=== PATIENT | female | born 1995 ===

== ENCOUNTER 2017-02-19 17:38 | Emergency (ER) | payer SELFPAY ==
[2017-02-19 17:49] VITALS: TEMP 99.2
--- NOTE | 2017-02-19 18:52 | RAD ---
HISTORY: chest pain, 2 months COMPARISON: Comparison is made to 03/28/2013 TECHNIQUE: Chest PA and lateral FINDINGS: LUNGS: No active pulmonary disease. PLEURA: No significant pleural effusion identified. No pneumothorax apparent. CARDIOVASCULAR: Normal. OSSEOUS STRUCTURES: No significant abnormalities. VISUALIZED UPPER ABDOMEN: Normal. OTHER FINDINGS: None. IMPRESSION: No active disease.
[2017-02-19 18:57] VITALS: BP 119/75; PULSE 95; RESP 19; O2SAT 98
--- NOTE | 2017-02-19 19:58 | ED PDOC ---
HPI: Chest Pain Time Seen by Provider: 02/19/17 18:01 Chief Complaint (Nursing): Chest Pain Past Medical History Vital Signs: Last Vital Signs Temp 99.2 F 02/19/17 18:56 Pulse 95 H 02/19/17 18:56 Resp 19 02/19/17 18:56 BP 119/75 02/19/17 18:56 Pulse Ox 98 02/19/17 18:56 - Family History Family History: States: Unknown Family Hx - Home Medications Home Medications: Ambulatory Orders Medication Instructions Recorded Amoxicillin 875 mg PO BID #14 tab 01/16/16 Ibuprofen [Motrin Tab] 800 mg PO Q8 PRN #20 tab 01/16/16 - Allergies Allergies/Adverse Reactions: Allergies Allergy/AdvReac Type Severity Reaction Status Date / Time No Known Allergies Allergy Verified 01/16/16 12:29 - ECG O2 Sat by Pulse Oximetry: 98 Disposition - Clinical Impression Clinical Impression: Chest pain - Patient ED Disposition Is Patient to be Admitted: No Counseled Patient/Family Regarding: Diagnosis, Need For Followup - Disposition Disposition: Routine/Home Disposition Time: 19:41 Condition: GOOD Instructions: Chest Pain (ED)
--- NOTE | 2017-02-20 08:07 | CARD ---
APPROVED REPORT EKG Measurement Heart [id number] <Conclusion> Normal sinus rhythm with sinus arrhythmia Normal ECG
== END 2017-02-19 19:50 | disposition home or self-care (01) ==
LOC: H.ER 17:38
DX: R07.89 Other chest pain (principal)

== ENCOUNTER 2017-02-28 23:53 | Emergency (ER) | payer SELFPAY ==
[2017-03-01] VITALS: BP 133/86; PULSE 113; RESP 16; TEMP 99.1; O2SAT 100
[2017-03-01] MEDS ORDERED: Sodium Chloride 0.9% 1,000 ML IV STA (00:36)
--- NOTE | 2017-03-01 01:07 | ED PDOC ---
HPI: Abdomen Time Seen by Provider: 03/01/17 00:04 Chief Complaint (Nursing): Abdominal Pain Chief Complaint (Provider): abdominal pain, nausea, watery diarrhea History Per: Patient History/Exam Limitations: no limitations Onset/Duration Of Symptoms: Days (3) Outside of [place] travel?: No Current Symptoms Are (Timing): Still Present Severity: Moderate Pain Scale Rating Of: 6 Location Of Pain/Discomfort: Diffuse Quality Of Discomfort: Dull, Cramping Past Medical History Reviewed: Historical Data, Nursing Documentation, Vital Signs Vital Signs: Last Vital Signs Temp 99.1 F 02/28/17 23:58 Pulse 113 H 02/28/17 23:58 Resp 16 02/28/17 23:58 BP 133/86 02/28/17 23:58 Pulse Ox 100 03/01/17 03:29 - Medical History PMH: No Chronic Diseases - Surgical History Surgical History: No Surg Hx - Family History Family History: States: Unknown Family Hx - Living Arrangements Living Arrangements: With Family - Social History Current smoker - smoking cessation education provided: No - Home Medications Home Medications: Ambulatory Orders Medication Instructions Recorded Amoxicillin 875 mg PO BID #14 tab 01/16/16 Ibuprofen [Motrin Tab] 800 mg PO Q8 PRN #20 tab 01/16/16 Ondansetron [Zofran Odt] 4 mg PO Q4H PRN #10 odt 03/01/17 - Allergies Allergies/Adverse Reactions: Allergies Allergy/AdvReac Type Severity Reaction Status Date / Time No Known Allergies Allergy Verified 02/28/17 23:58 Review of Systems ROS Statement: Except As Marked, All Systems Reviewed And Found Negative Constitutional: Negative for: Fever, Chills Respiratory: Negative for: Cough, Shortness of Breath Gastrointestinal: Positive for: Nausea, Abdominal Pain, Diarrhea Genitourinary Female: Negative for: Dysuria Physical Exam - Reviewed Nursing Documentation Reviewed: Yes Vital Signs Reviewed: Yes - Physical Exam Appears: Positive for: Well, Non-toxic, No Acute Distress Head Exam: Positive for: ATRAUMATIC, NORMAL INSPECTION, NORMOCEPHALIC Skin: Positive for: Normal Color, Warm, DRY Eye Exam: Positive for: Normal appearance ENT: Positive for: Normal ENT Inspection Neck: Positive for: Normal, Painless ROM Cardiovascular/Chest: Positive for: Regular Rate, Rhythm Respiratory: Positive for: Normal Breath Sounds. Negative for: Accessory Muscle Use Gastrointestinal/Abdominal: Positive for: Bowel Sounds, Soft, Tenderness (RLQ). Negative for: Normal Exam Back: Positive for: Normal Inspection Extremity: Positive for: Normal ROM Neurologic/Psych: Positive for: Alert, Oriented - Laboratory Results Result Diagrams: 03/01/17 01:10 03/01/17 01:10 - ECG O2 Sat by Pulse Oximetry: 100 Medical Decision Making Medical Decision Making: CT normal. Labs normal. Disposition - Clinical Impression Clinical Impression: Viral gastroenteritis - Patient ED Disposition Is Patient to be Admitted: No Counseled Patient/Family Regarding: Diagnosis, Need For Followup, Rx Given - Disposition Referrals: Daniella Knight MD [Primary Care Provider] - Disposition: Routine/Home Disposition Time: 03:34 Condition: GOOD Prescriptions: Ondansetron [Zofran Odt] 4 mg PO Q4H PRN #10 odt PRN Reason: Nausea Forms: [facility] (Telugu)
[2017-03-01 01:59] LABS: BASO % 0.3 % (0.0-2.0); EOS # 0.1 K/uL (0.0-0.7); EOS % 1.5 % (0.0-4.0); HEMATOCRIT 39.5 % (34.0-47.0); LYMPH # 2.1 K/uL (1.0-4.3); LYMPH % 30.6 % (20.0-40.0); MEAN CELL VOLUME 89.6 fl (81.0-99.0); MEAN CORPUSCULAR HEMOGLOBIN 29.4 pg (27.0-31.0); MEAN CORPUSCULAR HGB CONC 32.8 g/dL (33.0-37.0); MEAN PLATELET VOLUME 8.6 fl (7.2-11.7); MONO # 0.8 K/uL (0.0-0.8); MONO % 11.6 % (0.0-10.0); NEUT # 3.9 K/uL (1.8-7.0); RED CELL DISTRIBUTION WIDTH 12.7 % (11.5-14.5); WHITE BLOOD COUNT 6.9 K/uL (4.8-10.8)
[2017-03-01 02:06] LABS: ALB/GLOB RATIO 1.3 (1.0-2.1); ALKALINE PHOSPHATASE 55 U/L (38-126); ALT/SGPT 59 U/L (9-52); AST/SGOT 29 U/L (14-36); BILIRUBIN,TOTAL 0.5 mg/dl (0.2-1.3); BLOOD UREA NITROGEN 12 mg/dl (7-17); CALCIUM 9.2 mg/dL (8.4-10.2); CARBON DIOXIDE 25 mmol/L (22-30); CHLORIDE 103 mmol/L (98-107); GFR AFRICAN-AMERICAN > 60; GLUCOSE,RANDOM 80 mg/dL (65-105); POTASSIUM 3.6 MMOL/L (3.6-5.0); SODIUM 142 mmol/l (132-148); TOTAL PROTEIN 8.1 G/DL (6.3-8.2)
[2017-03-01] MEDS ORDERED: Iohexol 300 100 ML IJ ONE (02:13)
--- NOTE | 2017-03-01 08:10 | CT ---
PROCEDURE: CT Abdomen and Pelvis with contrast HISTORY: nausea, diarrhea, RLQ pain COMPARISON: Unenhanced abdomen and pelvis CT 11/05/2007. TECHNIQUE: Contrast dose: Omnipaque 300, 100 cc. Radiation dose: Total exam DLP = 774.12 mGy-cm. This CT exam was performed using one or more of the following dose reduction techniques: Automated exposure control, adjustment of the mA and/or kV according to patient size, and/or use of iterative reconstruction technique. FINDINGS: LOWER THORAX: Unremarkable. LIVER: Hepatic steatosis appreciated without focal mass underlying grossly. GALLBLADDER AND BILE DUCTS: Unremarkable. PANCREAS: Unremarkable. No gross lesion or ductal dilatation. SPLEEN: Unremarkable. ADRENALS: Unremarkable. No mass. KIDNEYS AND URETERS: Unremarkable. No hydronephrosis. No solid mass. VASCULATURE: Unremarkable. No aortic aneurysm. BOWEL: Stomach is distended with retained food. There is limited fecal loading throughout the colon. The bowel does not appear obstructed APPENDIX: Normal appendix. PERITONEUM: Trace fluid is seen in the inferior pelvis of uncertain origin and clinical significance. No mesenteric reaction is seen throughout. . LYMPH NODES: Unremarkable. No enlarged lymph nodes. BLADDER: Unremarkable. REPRODUCTIVE: Unremarkable. BONES: No acute fracture. OTHER FINDINGS: None. IMPRESSION: 1. Hepatic steatosis. 2. Trace fluid is seen in the inferior pelvis 3. Nonacute abdomen and pelvis CT examination as discussed above. If symptoms persist or worsen follow-up CT with oral and intravenous contrast is advised to further evaluate the abdomen pelvic organs. Concordant preliminary report from [facility], 03/01/2017.
== END 2017-03-01 03:54 | disposition home or self-care (01) ==
LOC: H.ER 23:53
DX: A08.4 Viral intestinal infection, unspecified (principal); K76.0 Fatty (change of) liver, not elsewhere classified
CPT/HCPCS: 74177; 80053; 81025; 85025; 96360; 99283; J2405; J7040; Q9967

== ENCOUNTER 2017-09-17 21:37 | Emergency (ER) | payer MEDICAID ==
[2017-09-17 21:47] VITALS: RESP 18; O2SAT 100
[2017-09-17 22:02] VITALS: BP 116/75; PULSE 84; TEMP 98.4
[2017-09-17] MEDS ORDERED: Sodium Chloride 0.9% 1,000 ML IV STA (23:09)
--- NOTE | 2017-09-17 23:19 | ED PDOC ---
HPI: Abdomen Time Seen by Provider: 09/17/17 22:44 Chief Complaint (Nursing): Abdominal Pain Chief Complaint (Provider): Abdominal Pain History Per: Patient History/Exam Limitations: no limitations Onset/Duration Of Symptoms: Days (x3), Intermittent Episodes Outside of [place] travel?: No Current Symptoms Are (Timing): Still Present Associated Symptoms: Nausea, Vomiting, Diarrhea. denies: Fever Additional Complaint(s): 21 year old female presents to ED with complaints of intermittent abdominal pain x3 days and has no past medical history. (+) nausea, vomiting x1 episode (non-bilious, non-bloody), and multiple episodes of diarrhea. (-) fever , cough, or SOB. PCP: None Past Medical History Reviewed: Historical Data, Nursing Documentation, Vital Signs Vital Signs: Last Vital Signs Temp 98.4 F 09/17/17 21:43 Pulse 84 09/17/17 21:43 Resp 18 09/17/17 21:43 BP 116/75 09/17/17 21:43 Pulse Ox 100 09/17/17 23:28 - Medical History PMH: No Chronic Diseases - Surgical History Surgical History: No Surg Hx - Family History Family History: States: Unknown Family Hx - Living Arrangements Living Arrangements: With Family - Social History Current smoker - smoking cessation education provided: No Ex-Smoker (has not smoked in the last 12 months): No Alcohol: None Drugs: Denies - Home Medications Home Medications: Ambulatory Orders Medication Instructions Recorded Amoxicillin 875 mg PO BID #14 tab 01/16/16 Ibuprofen [Motrin Tab] 800 mg PO Q8 PRN #20 tab 01/16/16 Ondansetron [Zofran Odt] 4 mg PO Q4H PRN #10 odt 03/01/17 Dicyclomine [Bentyl] 20 mg PO Q12 PRN #20 tab 09/18/17 Ondansetron ODT [Zofran ODT] 4 mg PO Q6 PRN #6 odt 09/18/17 - Allergies Allergies/Adverse Reactions: Allergies Allergy/AdvReac Type Severity Reaction Status Date / Time No Known Allergies Allergy Verified 09/17/17 21:43 Review of Systems ROS Statement: Except As Marked, All Systems Reviewed And Found Negative Constitutional: Negative for: Fever Respiratory: Negative for: Cough, Shortness of Breath Gastrointestinal: Positive for: Nausea, Vomiting (x1 episode), Abdominal Pain, Diarrhea (multiple episodes) Physical Exam - Reviewed Nursing Documentation Reviewed: Yes Vital Signs Reviewed: Yes - Physical Exam Appears: Positive for: Non-toxic, No Acute Distress Skin: Positive for: Normal Color, Warm, Dry Cardiovascular/Chest: Positive for: Regular Rate, Rhythm. Negative for: Murmur Respiratory: Positive for: Normal Breath Sounds. Negative for: Respiratory Distress Gastrointestinal/Abdominal: Positive for: Soft, Tenderness (mild LUQ tenderness) . Negative for: Normal Exam Neurologic/Psych: Positive for: Alert, Oriented. Negative for: Motor/Sensory Deficits - Laboratory Results Result Diagrams: 09/17/17 23:30 09/17/17 23:30 - ECG O2 Sat by Pulse Oximetry: 100 (RA) Pulse Ox Interpretation: Normal Medical Decision Making Medical Decision Makin Initial impression: 21 year old female with abdominal pain and diarrhea Initial plan: * Labs * Lipase * UPreg * UDip * Bentyl 20mg PO * NS IV * UA * Re-eval 0110 Upon re-evaluation patient reports marked improvement in symptoms and confirms PO tolerance. Labs reviewed: no clinically significant abnormalities with exception of urine being indicative of possible UTI. Dx: acute gastroenteritis Condition: improved Scribe Attestation: Documented by Josi Hernandez acting as a scribe for Matthew Davenport MD. Scribe Attestation: All medical record entries made by the Scribe were at my direction and personally dictated by me. I have reviewed the chart and agree that the record accurately reflects my personal performance of the history, physical exam, medical decision making, and the department course for this patient. I have also personally directed, reviewed, and agree with the discharge instructions and disposition. Disposition - Clinical Impression Clinical Impression: Gastroenteritis - Disposition Disposition: Routine/Home Disposition Time: 01:10 Condition: IMPROVED Prescriptions: Dicyclomine [Bentyl] 20 mg PO Q12 PRN #20 tab PRN Reason: abdominal pain/diarrhea Ondansetron ODT [Zofran ODT] 4 mg PO Q6 PRN #6 odt PRN Reason: Nausea/Vomiting Instructions: Gastroenteritis (ED) Forms: [employer] (Georgian)
[2017-09-17 23:38] LABS: BASO % 0.5 % (0.0-2.0); EOS # 0.1 K/uL (0.0-0.7); EOS % 0.8 % (0.0-4.0); LYMPH # 2.8 K/uL (1.0-4.3); LYMPH % 31.1 % (20.0-40.0); MEAN CELL VOLUME 90.5 fl (81.0-99.0); MEAN CORPUSCULAR HEMOGLOBIN 30.4 pg (27.0-31.0); MEAN CORPUSCULAR HGB CONC 33.6 g/dL (33.0-37.0); MEAN PLATELET VOLUME 8.3 fl (7.2-11.7); MONO # 0.7 K/uL (0.0-0.8); MONO % 8.2 % (0.0-10.0); NEUT # 5.4 K/uL (1.8-7.0); NEUT % 59.4 % (50.0-75.0); RBC 4.27 Mil/uL (3.80-5.20); RED CELL DISTRIBUTION WIDTH 13.1 % (11.5-14.5)
[2017-09-17 23:43] LABS: SQUAMOUS EPITHIAL < 1 /hpf (0-5); URINE AMORPHOUS SEDIMENT RARE /ul (<OCC); URINE BACTERIA RARE (<OCC); URINE BILIRUBIN NEGATIVE (NEGATIVE); URINE BLOOD SMALL (NEGATIVE); URINE CLARITY SLIGHTY-CLOUDY (Clear); URINE COLOR STRAW (YELLOW); URINE GLUCOSE (UA) NEG (Normal); URINE PROTEIN NEGATIVE (NEGATIVE); URINE UROBILINOGEN 0.2-1.0 mg/dL (0.2-1.0)
[2017-09-17 23:44] LABS: URINE LEUKOCYTE ESTERASE SMALL Leu/uL (Negative)
[2017-09-17 23:53] LABS: ALB/GLOB RATIO 1.3 (1.0-2.1); ALBUMIN 4.5 g/dL (3.5-5.0); ALT/SGPT 38 U/L (9-52); AST/SGOT 23 U/L (14-36); BLOOD UREA NITROGEN 9 mg/dl (7-17); CALCIUM 9.6 mg/dL (8.4-10.2); GFR AFRICAN-AMERICAN > 60; GFR NON-AFRICAN AMERICAN > 60; LIPASE 73 U/L (23-300)
== END 2017-09-18 01:20 | disposition home or self-care (01) ==
LOC: H.ER 21:37
DX: K52.9 Noninfective gastroenteritis and colitis, unspecified (principal)
CPT/HCPCS: 80053; 81003; 81025; 83690; 85025; 87086; 96360; 99284; J7030

== ENCOUNTER 2017-11-12 23:34 | Emergency (ER) | payer MEDICAID ==
[2017-11-12 23:47] VITALS: BP 117/80; PULSE 93; RESP 16; TEMP 98.6; O2SAT 99
--- NOTE | 2017-11-13 00:50 | ED PDOC ---
Lower Extremity Pain/Injury Time Seen by Provider: 11/13/17 00:08 Chief Complaint (Nursing): Lower Extremity Problem/Injury Chief Complaint (Provider): right ankle pain History Per: Patient History/Exam Limitations: no limitations Onset/Duration Of Symptoms: Days (3) Current Symptoms Are (Timing): Still Present Additional Complaint(s): 21 y/o female presents for evaluation of right ankle pain x 3 day. Patient states she woke up with the pain one day, which is worsened with weight-bearing , flexion and extension of right ankle. Denies known injury, fever, swelling to ankle, numbness/weakness right lower extremity, limitation of movement. Past Medical History Reviewed: Historical Data, Nursing Documentation, Vital Signs Vital Signs: Last Vital Signs Temp 98.6 F 11/12/17 23:44 Pulse 93 H 11/12/17 23:44 Resp 16 11/12/17 23:44 BP 117/80 11/12/17 23:44 Pulse Ox 99 11/12/17 23:44 - Medical History PMH: No Chronic Diseases - Surgical History Surgical History: No Surg Hx - Family History Family History: States: Unknown Family Hx - Home Medications Home Medications: Ambulatory Orders Medication Instructions Recorded Amoxicillin 875 mg PO BID #14 tab 01/16/16 Ibuprofen [Motrin Tab] 800 mg PO Q8 PRN #20 tab 01/16/16 Ondansetron [Zofran Odt] 4 mg PO Q4H PRN #10 odt 03/01/17 Dicyclomine [Bentyl] 20 mg PO Q12 PRN #20 tab 09/18/17 Ondansetron ODT [Zofran ODT] 4 mg PO Q6 PRN #6 odt 09/18/17 Ibuprofen [Motrin Tab] 1 tab PO Q6 PRN #20 tab 11/13/17 - Allergies Allergies/Adverse Reactions: Allergies Allergy/AdvReac Type Severity Reaction Status Date / Time No Known Allergies Allergy Verified 11/12/17 23:44 Review of Systems ROS Statement: Except As Marked, All Systems Reviewed And Found Negative Musculoskeletal: Positive for: Leg Pain (right ankle) Physical Exam - Reviewed Nursing Documentation Reviewed: Yes Vital Signs Reviewed: Yes - Physical Exam Appears: Positive for: Well, Non-toxic, No Acute Distress Pulses-Dorsalis Pedis (L): 2+ Pulses-Dorsalis Pedis (R): 2+ Pulses-Post. Tibialis (L): 2+ Pulses-Post. Tibialis (R): 2+ Extremity: Positive for: Normal ROM, Tenderness (anterior aspect right ankle; no erythema, deformity, ecchymosis noted. FROM. Distal NV/motor intact) Neurologic/Psych: Positive for: Alert, Oriented. Negative for: Motor/Sensory Deficits - ECG O2 Sat by Pulse Oximetry: 99 - Other Rad right ankle xray X-Ray: Viewed By Me X-Ray Interpretation: no acute findings - Progress ED Course And Treament: ibuprofen PO, right ankle xray Patient educated on findings, right ankle wrapped in ERIN. Crutches given with demonstration on light weight bearing Rx Ibuprofen provided Advised RICE. Follow up podiatry for persistent symptoms. Return precautions given Patient demonstrates full understanding of discharge instructions. Patient requires no further intervention in ED and is stable for discharge at this time. Disposition - Clinical Impression Clinical Impression: Ankle pain - Patient ED Disposition Is Patient to be Admitted: No Counseled Patient/Family Regarding: Studies Performed, Diagnosis, Need For Followup, Rx Given - Disposition Referrals: Charisse Gerber MD [Primary Care Provider] - Podiatry Clinic [Outside] Disposition: Routine/Home Disposition Time: 01:26 Condition: IMPROVED Prescriptions: Ibuprofen [Motrin Tab] 1 tab PO Q6 PRN #20 tab PRN Reason: Pain, Moderate (4-7) Instructions: Muscle and Bone Pain (DC) Forms: [facility] ED School/Work Excuse
--- NOTE | 2017-11-13 08:34 | RAD ---
Date of service: 11/13/2017 PROCEDURE: Right Ankle Radiographs. HISTORY: ankle pain COMPARISON: None FINDINGS: BONES: Normal. No fracture. JOINTS: Normal. No osteoarthritis. Ankle mortise maintained. Talar dome intact SOFT TISSUES: Normal. OTHER FINDINGS: None. IMPRESSION: Normal right ankle radiographs.
== END 2017-11-13 02:00 | disposition home or self-care (01) ==
LOC: H.ER 23:34
DX: M25.571 Pain in right ankle and joints of right foot (principal)

== ENCOUNTER 2018-01-01 23:08 | Emergency (ER) | payer MEDICAID ==
[2018-01-01 23:14] VITALS: RESP 16
--- NOTE | 2018-01-02 00:31 | ED PDOC ---
HPI: CCC, URI, Sore Throat Time Seen by Provider: 01/01/18 23:40 Chief Complaint (Nursing): ENT Problem Chief Complaint (Provider): right ear irritation History Per: Patient History/Exam Limitations: no limitations Onset/Duration Of Symptoms: Days (1 week) Current Symptoms Are (Timing): Still Present Additional Complaint(s): 22 y/o female presents for evaluation of right ear irritation x 1 week. Patient states she put a blanket over her head while sleeping and thinks something may have gone into her ear. Reports intermittent pain/itching since then. Denies fever, drainage from ear, hearing changes, nasal congestion, cough Past Medical History Reviewed: Historical Data, Nursing Documentation, Vital Signs Vital Signs: Last Vital Signs Temp 98.3 F 01/01/18 23:12 Pulse 92 H 01/01/18 23:12 Resp 16 01/01/18 23:12 BP 115/74 01/01/18 23:12 Pulse Ox 99 01/01/18 23:12 - Medical History PMH: No Chronic Diseases - Surgical History Surgical History: No Surg Hx - Family History Family History: States: Unknown Family Hx - Living Arrangements Living Arrangements: With Family - Home Medications Home Medications: Ambulatory Orders Medication Instructions Recorded Amoxicillin 875 mg PO BID #14 tab 01/16/16 Ibuprofen [Motrin Tab] 800 mg PO Q8 PRN #20 tab 01/16/16 Ondansetron [Zofran Odt] 4 mg PO Q4H PRN #10 odt 03/01/17 Dicyclomine [Bentyl] 20 mg PO Q12 PRN #20 tab 09/18/17 Ondansetron ODT [Zofran ODT] 4 mg PO Q6 PRN #6 odt 09/18/17 Ibuprofen [Motrin Tab] 1 tab PO Q6 PRN #20 tab 11/13/17 Ibuprofen [Motrin Tab] 1 tab PO Q6 PRN #15 tab 01/02/18 Neomycin/Polymyxin/Hydrocortis 4 drop OT TID #1 bottle 01/02/18 [Cortisporin Otic Susp] - Allergies Allergies/Adverse Reactions: Allergies Allergy/AdvReac Type Severity Reaction Status Date / Time No Known Allergies Allergy Verified 01/01/18 23:11 Review of Systems ROS Statement: Except As Marked, All Systems Reviewed And Found Negative ENT: Positive for: Ear Pain (right) Physical Exam - Reviewed Nursing Documentation Reviewed: Yes Vital Signs Reviewed: Yes - Physical Exam Appears: Positive for: Well, Non-toxic, No Acute Distress Head Exam: Positive for: ATRAUMATIC, NORMAL INSPECTION, NORMOCEPHALIC Skin: Positive for: Normal Color ENT: Positive for: TM Is/Are (TMs clear bilaterally. Right EAC edema, + tenderness with speculum insertion. Left EAC clear. No tenderness upon tragus/pinna maniupulation. No mastoid swelling/erythema/tenderness b/l) Cardiovascular/Chest: Positive for: Regular Rate, Rhythm Respiratory: Positive for: Normal Breath Sounds Gastrointestinal/Abdominal: Positive for: Normal Exam Back: Positive for: Normal Inspection Extremity: Positive for: Normal ROM Neurologic/Psych: Positive for: Alert, Oriented (x3) - ECG O2 Sat by Pulse Oximetry: 99 - Progress ED Course And Treament: Patient educated on findings, discharged with rx Cortisporin drops, ibuprofen Advised follow up PMD within 2-3 days Return precautions given Disposition - Clinical Impression Clinical Impression: Right otitis externa - Patient ED Disposition Is Patient to be Admitted: No Counseled Patient/Family Regarding: Studies Performed, Diagnosis, Need For Followup, Rx Given - Disposition Disposition: Routine/Home Disposition Time: 01:48 Condition: IMPROVED Prescriptions: Ibuprofen [Motrin Tab] 1 tab PO Q6 PRN #15 tab PRN Reason: Pain, Moderate (4-7) Neomycin/Polymyxin/Hydrocortis [Cortisporin Otic Susp] 4 drop OT TID #1 bottle Instructions: Outer Ear Infection
[2018-01-02 01:29] LABS: SQUAMOUS EPITHIAL 5 /hpf (0-5); URINE BILIRUBIN NEGATIVE (NEGATIVE); URINE BLOOD NEGATIVE (NEGATIVE); URINE CLARITY SLIGHTY-CLOUDY (Clear); URINE COLOR YELLOW (YELLOW); URINE GLUCOSE (UA) NEG (Normal); URINE LEUKOCYTE ESTERASE SMALL Leu/uL (Negative); URINE PROTEIN 30 mg/dL (NEGATIVE)
[2018-01-02 02:29] VITALS: BP 122/70; PULSE 67; TEMP 98.8; O2SAT 98
== END 2018-01-02 02:00 | disposition home or self-care (01) ==
LOC: H.ER 23:08
DX: H60.91 Unspecified otitis externa, right ear (principal)

== ENCOUNTER 2018-02-19 17:58 | Emergency (ER) | payer MEDICAID ==
[2018-02-19 19:22] VITALS: BP 129/80; PULSE 85; RESP 18; TEMP 98.9; O2SAT 100
--- NOTE | 2018-02-19 20:25 | ED PDOC ---
HPI: Female Pain Time Seen by Provider: 02/19/18 19:22 Chief Complaint (Nursing): Female Genitourinary Chief Complaint (Provider): Pain wiht urination x 1 week History Per: Patient History/Exam Limitations: no limitations Onset/Duration Of Symptoms: Days Current Symptoms Are (Timing): Still Present Quality Of Discomfort: "Pain" Associated Symptoms: Urinary Symptoms. denies: Fever, Chills, Nausea, Vomiting, Loss Of Appetite, Back Pain, Chest Pain, Constipation Alleviating Factors: None Additional Complaint(s): 22 yo female with no medical problems presents for evaluation of pain on urination for 1 week. Pt also reports lower abdominal pain, central during urination. Pt states pain is not burning or hot, just pain. No N/V/D. No back pain. No fever/chills. Past Medical History Reviewed: Historical Data, Nursing Documentation, Vital Signs Vital Signs: Last Vital Signs Temp 98.9 F 02/19/18 19:19 Pulse 85 02/19/18 19:19 Resp 18 02/19/18 19:19 BP 129/80 02/19/18 19:19 Pulse Ox 100 02/19/18 19:19 - Medical History PMH: No Chronic Diseases - Surgical History Surgical History: No Surg Hx - Family History Family History: States: Unknown Family Hx - Living Arrangements Living Arrangements: With Family - Social History Current smoker - smoking cessation education provided: No - Home Medications Home Medications: Ambulatory Orders Medication Instructions Recorded Amoxicillin 875 mg PO BID #14 tab 01/16/16 Ibuprofen [Motrin Tab] 800 mg PO Q8 PRN #20 tab 01/16/16 Ondansetron [Zofran Odt] 4 mg PO Q4H PRN #10 odt 03/01/17 Dicyclomine [Bentyl] 20 mg PO Q12 PRN #20 tab 09/18/17 Ondansetron ODT [Zofran ODT] 4 mg PO Q6 PRN #6 odt 09/18/17 Ibuprofen [Motrin Tab] 1 tab PO Q6 PRN #20 tab 11/13/17 Ibuprofen [Motrin Tab] 1 tab PO Q6 PRN #15 tab 01/02/18 Neomycin/Polymyxin/Hydrocortis 4 drop OT TID #1 bottle 01/02/18 [Cortisporin Otic Susp] Ciprofloxacin [Cipro] 500 mg PO BID #10 tab 02/19/18 - Allergies Allergies/Adverse Reactions: Allergies Allergy/AdvReac Type Severity Reaction Status Date / Time No Known Allergies Allergy Verified 01/01/18 23:11 Review of Systems ROS Statement: Except As Marked, All Systems Reviewed And Found Negative Constitutional: Negative for: Fever, Chills Gastrointestinal: Negative for: Nausea, Vomiting, Abdominal Pain Genitourinary Female: Positive for: Dysuria. Negative for: Frequency, Incont inence, Vaginal Discharge, Vaginal Bleeding, Pelvic Pain Musculoskeletal: Negative for: Back Pain Skin: Negative for: Rash Neurological: Negative for: Weakness, Numbness, Altered Mental Status, Headache, Dizziness Physical Exam - Reviewed Nursing Documentation Reviewed: Yes Vital Signs Reviewed: Yes - Physical Exam Appears: Positive for: Well, Non-toxic, No Acute Distress Head Exam: Positive for: ATRAUMATIC, NORMAL INSPECTION, NORMOCEPHALIC Skin: Positive for: Normal Color, Warm, DRY Eye Exam: Positive for: EOMI, Normal appearance, PERRL ENT: Positive for: Normal ENT Inspection Neck: Positive for: Normal, Painless ROM Cardiovascular/Chest: Positive for: Regular Rate, Rhythm. Negative for: Bradycardia, Tachycardia Respiratory: Positive for: Normal Breath Sounds. Negative for: Accessory Muscle Use, Respiratory Distress Gastrointestinal/Abdominal: Positive for: Normal Exam. Negative for: Tenderness Back: Positive for: Normal Inspection Extremity: Positive for: Normal ROM Neurologic/Psych: Positive for: Alert, Oriented - Laboratory Results Urine POC: Negative - ECG O2 Sat by Pulse Oximetry: 100 Pulse Ox Interpretation: Normal Disposition - Clinical Impression Clinical Impression: UTI (urinary tract infection) - Patient ED Disposition Is Patient to be Admitted: No Counseled Patient/Family Regarding: Diagnosis, Need For Followup, Rx Given - Disposition Disposition: Routine/Home Disposition Time: 20:25 Condition: GOOD Prescriptions: Ciprofloxacin [Cipro] 500 mg PO BID #10 tab Instructions: Urinary Tract Infection, Adult (DC)
== END 2018-02-19 20:33 | disposition home or self-care (01) ==
LOC: H.ER 17:58
DX: N39.0 Urinary tract infection, site not specified (principal)

== ENCOUNTER 2018-07-28 14:03 | Emergency (ER) | payer MEDICAID ==
[2018-07-28 14:34] VITALS: RESP 18
--- NOTE | 2018-07-28 14:54 | ED PDOC ---
HPI: Abdomen Time Seen by Provider: 07/28/18 14:51 Chief Complaint (Nursing): Abdominal Pain Chief Complaint (Provider): ABDOMINAL PAIN History Per: Patient (22 Y/O FEMALE WITH LLQ ABD PAIN INTERMITTENT X 4 WEEKS ASSOCIATED WITH VOMITING. DENIES ANY . NO VAGINAL DISCHARGE/FEVERS/CHILLS/DYSURIA/DIARRHEA.) Past Medical History Reviewed: Historical Data, Nursing Documentation, Vital Signs Vital Signs: Last Vital Signs Temp 98.5 F 07/28/18 14:32 Pulse 75 07/28/18 14:32 Resp 18 07/28/18 14:32 BP 117/75 07/28/18 14:32 Pulse Ox 100 07/28/18 14:32 Primary Care Provider: Charisse Gerber - Family History Family History: States: Unknown Family Hx - Home Medications Home Medications: Ambulatory Orders Medication Instructions Recorded Amoxicillin 875 mg PO BID #14 tab 01/16/16 Ibuprofen [Motrin Tab] 800 mg PO Q8 PRN #20 tab 01/16/16 Ondansetron [Zofran Odt] 4 mg PO Q4H PRN #10 odt 03/01/17 Dicyclomine [Bentyl] 20 mg PO Q12 PRN #20 tab 09/18/17 Ondansetron ODT [Zofran ODT] 4 mg PO Q6 PRN #6 odt 09/18/17 Ibuprofen [Motrin Tab] 1 tab PO Q6 PRN #20 tab 11/13/17 Ibuprofen [Motrin Tab] 1 tab PO Q6 PRN #15 tab 01/02/18 Neomycin/Polymyxin/Hydrocortis 4 drop OT TID #1 bottle 01/02/18 [Cortisporin Otic Susp] Ciprofloxacin [Cipro] 500 mg PO BID #10 tab 02/19/18 - Allergies Allergies/Adverse Reactions: Allergies Allergy/AdvReac Type Severity Reaction Status Date / Time No Known Allergies Allergy Verified 07/28/18 14:34 Review of Systems ROS Statement: Except As Marked, All Systems Reviewed And Found Negative Physical Exam - Reviewed Nursing Documentation Reviewed: Yes Vital Signs Reviewed: Yes - Physical Exam Appears: Positive for: Well, Non-toxic, No Acute Distress Head Exam: Positive for: ATRAUMATIC, NORMAL INSPECTION, NORMOCEPHALIC Skin: Positive for: Normal Color, Warm, DRY Eye Exam: Positive for: EOMI, Normal appearance, PERRL ENT: Positive for: Normal ENT Inspection Neck: Positive for: Normal, Painless ROM Cardiovascular/Chest: Positive for: Regular Rate, Rhythm Respiratory: Positive for: CNT, Normal Breath Sounds Gastrointestinal/Abdominal: Positive for: Normal Exam, Soft Pelvic Exam: Positive for: Active Bleeding. Negative for: Bimanual Exam Normal Back: Positive for: Normal Inspection Extremity: Positive for: Normal ROM Neurological/Psych: Positive for: Awake, Alert, Normal Tone - Laboratory Results Result Diagrams: 07/28/18 15:47 07/28/18 15:47 - ECG O2 Sat by Pulse Oximetry: 100 - Progress ED Course And Treament: TORADOL 15 MG IV X 1 DOSE PATIENT NOTES PERSISENT PAIN G/C CX SENT US REVIEWED. WBC ELEVATED 12.7 CT ABD/PELVIS ORDERED Medical Decision Making Medical Decision Making: Time: Initial Impression: Initial Plan: 1710 FINDINGS: UTERUS: Measures 3.2 x 3.7 x 7.2 cm. Normal in size and appearance. No fibroid or other mass lesion seen. ENDOMETRIUM: Measures 8.1 mm in diameter. No ultrasound findings to suggest gestational sac, fluid, debris, mass or polyp or other pathologic process within the endometrium. CERVIX: No cervical abnormality identified. RIGHT OVARY: Measures 3.5 x 1.6 x 2.8 cm. No solid mass. Normal flow. Complex cyst 0.9 x 1.1 x 1.8 cm LEFT OVARY: Measures 1 1 x 1.8 x 1.8 cm. No solid mass. Normal flow. Multiple subcentimeter follicles. FREE FLUID: No significant free fluid noted. OTHER FINDINGS: None. IMPRESSION: Unremarkable uterus and endometrial echo complex. Multiple bilateral cysts/follicles. Dominant complex cyst right adnexa. --- Scribe Attestation: Documented by Josué Briseno, acting as a scribe for JELANI Thakur. Provider Scribe Attestation: All medical record entries made by the Scribe were at my direction and personally dictated by me. I have reviewed the chart and agree that the record accurately reflects my personal performance of the history, physical exam, medical decision making, and the department course for this patient. I have also personally directed, reviewed, and agree with the discharge instructions and disposition. Disposition - Clinical Impression Clinical Impression: Abdominal pain in female - Patient ED Disposition Is Patient to be Admitted: Transfer of Care - Disposition Disposition: Transfer of Care Disposition Time: 20:00 Condition: FAIR Patient Signed Over To: Alejandra Gardiner Handoff Comments: PENDING CT ABD/PELVIS RESULTS
[2018-07-28 15:57] LABS: BASO # 0.1 K/uL (0.0-0.2); BASO % 0.4 % (0.0-2.0); EOS % 0.2 % (0.0-4.0); HEMOGLOBIN 13.2 g/dL (12.0-16.0); LYMPH # 1.5 K/uL (1.0-4.3); LYMPH % 12.1 % (20.0-40.0); MEAN CELL VOLUME 91.1 fl (81.0-99.0); MEAN CORPUSCULAR HGB CONC 32.9 g/dL (33.0-37.0); MEAN PLATELET VOLUME 9.2 fl (7.2-11.7); MONO # 0.7 K/uL (0.0-0.8); MONO % 5.5 % (0.0-10.0); NEUT # 10.4 K/uL (1.8-7.0); NEUT % 81.8 % (50.0-75.0); RBC 4.41 Mil/uL (3.80-5.20); WHITE BLOOD COUNT 12.7 K/uL (4.8-10.8)
[2018-07-28 16:07] LABS: SQUAMOUS EPITHIAL 2 /hpf (0-5); URINE BACTERIA RARE (<OCC); URINE BILIRUBIN NEGATIVE (NEGATIVE); URINE BLOOD LARGE (NEGATIVE); URINE CLARITY SLIGHTY-CLOUDY (Clear); URINE COLOR YELLOW (YELLOW); URINE GLUCOSE (UA) NEG (NEGATIVE); URINE LEUKOCYTE ESTERASE NEG Leu/uL (Negative); URINE PROTEIN NEGATIVE (NEGATIVE); URINE UROBILINOGEN 0.2-1.0 mg/dL (0.2-1.0)
[2018-07-28 16:08] LABS: ALB/GLOB RATIO 1.4 (1.0-2.1); ALBUMIN 4.4 g/dL (3.5-5.0); BLOOD UREA NITROGEN 9 mg/dl (7-17); CALCIUM 9.3 mg/dL (8.4-10.2); GFR NON-AFRICAN AMERICAN > 60; LIPASE 37 U/L (23-300)
[2018-07-28 16:21] LABS: ALT/SGPT 23 U/L (9-52); AST/SGOT 29 U/L (14-36)
--- NOTE | 2018-07-28 17:54 | US ---
Date of service: 07/28/2018 HISTORY: LLQ PAIN and vomiting. LMP 07/16/2018. Regular cycles. COMPARISON: None available. TECHNIQUE: Transvaginal only. Real -time technique with 2D, duplex and color Doppler FINDINGS: UTERUS: Measures 3.2 x 3.7 x 7.2 cm. Normal in size and appearance. No fibroid or other mass lesion seen. ENDOMETRIUM: Measures 8.1 mm in diameter. No ultrasound findings to suggest gestational sac, fluid, debris, mass or polyp or other pathologic process within the endometrium. CERVIX: No cervical abnormality identified. RIGHT OVARY: Measures 3.5 x 1.6 x 2.8 cm. No solid mass. Normal flow. Complex cyst 0.9 x 1.1 x 1.8 cm LEFT OVARY: Measures 1 1 x 1.8 x 1.8 cm. No solid mass. Normal flow. Multiple subcentimeter follicles. FREE FLUID: No significant free fluid noted. OTHER FINDINGS: None. IMPRESSION: Unremarkable uterus and endometrial echo complex. Multiple bilateral cysts/follicles. Dominant complex cyst right adnexa.
[2018-07-28] MEDS ORDERED: Iohexol 240 (50 ml) PO ONE (18:29)
[2018-07-28] MEDS ORDERED: Iohexol 240 (50 ml) ONE (19:17)
[2018-07-28] MEDS ORDERED: Sodium Chloride 0.9% 50 ML IV ONE (21:03)
[2018-07-28] MEDS ORDERED: Iohexol 300 100 ML IJ ONE (21:03)
--- NOTE | 2018-07-28 21:38 | ED PDOC ---
- Laboratory Results Result Diagrams: 07/28/18 15:47 07/28/18 15:47 Lab Results: Total Bilirubin 1.0 mg/dl (0.2-1.3) 07/28/18 15:47 AST 29 U/L (14-36) 07/28/18 15:47 ALT 23 U/L (9-52) 07/28/18 15:47 Alkaline Phosphatase 32 U/L (38-126) L D 07/28/18 15:47 Total Protein 7.7 G/DL (6.3-8.2) 07/28/18 15:47 Albumin 4.4 g/dL (3.5-5.0) 07/28/18 15:47 Globulin 3.2 gm/dL (2.2-3.9) 07/28/18 15:47 Albumin/Globulin Ratio 1.4 (1.0-2.1) 07/28/18 15:47 Lipase 37 U/L (23-300) 07/28/18 15:47 Urine Color Yellow (YELLOW) 07/28/18 15:47 Urine Clarity Slighty-cloudy (Clear) 07/28/18 15:47 Urine pH 6.0 (5.0-8.0) 07/28/18 15:47 Ur Specific [place] 1.014 (1.003-1.030) 07/28/18 15:47 Urine Protein Negative mg/dL (NEGATIVE) 07/28/18 15:47 Urine Glucose (UA) Neg mg/dL (NEGATIVE) 07/28/18 15:47 Urine Ketones Negative mg/dL (NEGATIVE) 07/28/18 15:47 Urine Blood Large (NEGATIVE) 07/28/18 15:47 Urine Nitrate Negative (NEGATIVE) 07/28/18 15:47 Urine Bilirubin Negative (NEGATIVE) 07/28/18 15:47 Urine Urobilinogen 0.2-1.0 mg/dL (0.2-1.0) 07/28/18 15:47 Ur Leukocyte Esterase Neg Eber/uL (Negative) 07/28/18 15:47 Urine RBC (Auto) 187 /hpf (0-3) H 07/28/18 15:47 Urine Microscopic WBC 2 /hpf (0-5) 07/28/18 15:47 Ur Squamous Epith Cells 2 /hpf (0-5) 07/28/18 15:47 Urine Bacteria Rare (<OCC) 07/28/18 15:47 - ECG O2 Sat by Pulse Oximetry: 100 - Progress ED Course And Treament: case endorsed to junior technical writer from José CANTRELL pending CT EXAM: CT Abdomen and Pelvis with IV and oral contrast agent. CLINICAL HISTORY: Llq pain TECHNIQUE: Axial computed tomography images of the abdomen and pelvis with intravenous contrast. 630.27 mGy-cm CONTRAST: With; [id number] 90ML COMPARISON: Comparison is made to previous CT abdomen and pelvis examination dated 03/01/2017. FINDINGS: LUNG BASES: The lung bases appear clear. No pleural effusions are seen. LIVER: There is mild hepatomegaly. The liver measured 16.5 cm in the midclavicular line. GALLBLADDER AND BILE DUCTS: The gallbladder appears within normal limits. No radioopaque gallstones are seen. No biliary ductal dilatation is evident. PANCREAS: Unremarkable. SPLEEN: Unremarkable. ADRENAL GLANDS: Unremarkable. KIDNEYS, URETERS, AND BLADDER: The kidneys appear within normal limits. There is no hydronephrosis or hydroureter. No urinary calculi are seen. The urinary bladder appeared normal in size and configuration. There is apparent subtle perivesical stranding present anteriorly suggestive of acute cystitis. STOMACH AND BOWEL: Unremarkable appearance of the stomach. No evidence of bowel obstruction. Mild mucosal wall thickening of the jejunum with fluid in the lumen suggests jejunitis. Infectious or inflammatory etiologies are thought most likely. No evidence suggesting colitis. APPENDIX: No evidence of acute appendicitis on CT examination. PERITONEUM: No free fluid. No free air. There is inflammatory stranding seen in the lower central mesenteric fat; particularly pronounced in the right lower quadrant suspicious for mesenteritis. LYMPH NODES: No lymphadenopathy is evident. Multiple non--enlarged lymph nodes are seen in the central root of the mesentery possibly compatible with mesenteric adenitis. REPRODUCTIVE: Unremarkable as visualized. VASCULATURE: No evidence of abdominal aortic aneurysm. BONES: No aggressive appearing osseous lesion. No acute osseous pathology evident. IMPRESSION: 1. Evidence of mesenteritis as described above. 2. Findings thought compatible with mesenteric adenitis. 3. Subtle perivesical stranding suggests acute cystitis. 4. Mild hepatomegaly. 5. Findings suggestive of jejunitis On re-eval, patient resting comfortably; states pain improved Patient educated on findings, discharged with rx Cipro, Zofran, Florastor, Napro xen Advised GI follow up [place] diet, increase fluid intake Return precautions given Disposition - Clinical Impression Clinical Impression: Abdominal pain in female - POA Present On Arrival: None - Disposition Referrals: Prashanth Bautista MD [Staff Provider] - [facility] [Outside] Disposition: Routine/Home Disposition Time: 23:15 Condition: IMPROVED Prescriptions: Ciprofloxacin HCl [Cipro] 500 mg PO BID #20 tab Naproxen [Naprosyn] 500 mg PO Q12 PRN #20 tablet PRN Reason: Pain, Moderate (4-7) Ondansetron ODT [Zofran ODT] 4 mg PO Q8 PRN #10 odt PRN Reason: Nausea/Vomiting Saccharomyces Boulardii [Florastor] 250 mg PO BID #30 capsule Instructions: Acute Abdomen (Belly Pain), Mesenteric Lymphadenitis Forms: [facility] ED School/Work Excuse
[2018-07-28 23:27] VITALS: BP 118/72; PULSE 88; TEMP 97.7; O2SAT 99
--- NOTE | 2018-07-29 09:12 | CT ---
Date of service: 07/28/2018 PROCEDURE: CT Abdomen and Pelvis with contrast HISTORY: Left lower quadrant abdominal pain; wbc 12.7 COMPARISON: 03/01/2017. TECHNIQUE: CT scan of the abdomen and pelvis was performed after administration of intravenous contrast. Oral contrast was administered. Coronal and sagittal reformatted images were obtained. Contrast dose: 90 mL Omnipaque Radiation dose: Total exam DLP = 630.27 mGy-cm. This CT exam was performed using one or more of the following dose reduction techniques: Automated exposure control, adjustment of the mA and/or kV according to patient size, and/or use of iterative reconstruction technique. FINDINGS: LOWER THORAX: The visualized lungs are clear. LIVER: Mild hepatomegaly and fatty liver. Normal homogeneous enhancement. No gross lesion or ductal dilatation. GALLBLADDER AND BILE DUCTS: Well distended. No calcified gallstones, wall thickening or pericholecystic fluid. PANCREAS: Normal in size with homogeneous enhancement. No gross lesion or ductal dilatation. SPLEEN: Normal in size and appearance. 300 ADRENALS: No discrete nodule. KIDNEYS AND URETERS: Normal in size with homogeneous enhancement. No hydronephrosis. No solid mass. VASCULATURE: No aortic aneurysm. There are no aortic atherosclerotic calcifications or mural plaque present. BOWEL: The small bowel loops are normal in caliber. There is moderate amount of stool in the ascending and transverse colon. No bowel wall thickening or obstruction. APPENDIX: Normal appendix. PERITONEUM: There is small amount of free fluid in the left adnexa and pelvis. No free air. LYMPH NODES: No enlarged lymph nodes. BLADDER: Well distended and normal in appearance. REPRODUCTIVE: The uterus is normal in size. There is a 1.9 x 1.5 cm cyst with irregular enhancing margins in the left ovary. BONES: No acute fracture. Within normal limits for the patient's age. OTHER FINDINGS: None. IMPRESSION: 1. 1.9 x 1.5 cm crenated/leaking cyst in the left ovary and small amount of free fluid in the left adnexa and pelvis. 2. Mild hepatomegaly and fatty liver. A preliminary report was provided by [facility].
== END 2018-07-28 23:27 | disposition home or self-care (01) ==
LOC: H.ER 14:03
DX: R10.2 Pelvic and perineal pain (principal)
CPT/HCPCS: 74177; 76830; 80053; 81003; 81025; 83690; 85025; 87086; 87491; 87591; 96374; 99283; J1885; Q9966; Q9967